=== PATIENT | female | born 1985 | race Two or more races ===

== ENCOUNTER 2024-01-07 08:43 | Emergency (ER) | payer MEDICAID ==
[~2024-01-07] VITALS: Ht 152.4 cm; Wt 67.0 kg
[2024-01-07 10:51] VITALS: BP 111/79; PULSE 84; RESP 16; TEMP 98; O2SAT 98
[2024-01-07] MEDS ORDERED: MELO7.5T7 PO (11:45)
[2024-01-07] MEDS ORDERED: ACET-1881 PO (11:45)
[2024-01-07] MEDS ORDERED: DICL1GEL59 EX (11:45)
== END 2024-01-07 11:50 | disposition home or self-care (01) ==
LOC: ER 08:43
DX: M79.642 Pain in left hand (principal); M79.641 Pain in right hand; M25.641 Stiffness of right hand, not elsewhere classified; M25.642 Stiffness of left hand, not elsewhere classified
CPT/HCPCS: 73130